=== PATIENT | male | born 1985 | race Caucasian/White ===

== ENCOUNTER 2023-01-16 23:09 | Emergency (ER) | payer SELFPAY ==
[~2023-01-16] VITALS: Ht 157.5 cm; Wt 60.0 kg
[2023-01-16 23:19] VITALS: BP 138/73; PULSE 98; RESP 16; TEMP 97.8; O2SAT 98
== END 2023-01-17 00:07 | disposition left against medical advice (07) ==
LOC: ER 23:09
DX: Z53.21 Procedure and treatment not carried out due to patient leaving prior to being seen by health care provider (principal)
CPT/HCPCS: 99281